=== PATIENT | male | born 1990 | race Caucasian/White ===

== ENCOUNTER 2018-09-23 18:57 | Emergency (ER) | payer BC, OTHER ==
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
[2018-09-23] MEDS ORDERED: DIPHTH/TETANUS/ACEL. PERTUSSIS IM ONLY ONE (19:10)
[2018-09-23 19:30] VITALS: BP 122/94
== END 2018-09-23 20:00 | disposition home or self-care (01) ==
LOC: ER 19:11
DX: S01.01XA Laceration without foreign body of scalp, initial encounter (principal)
CPT/HCPCS: 90471; 90715; 99283